=== PATIENT | female | born 2000 | race Caucasian/White ===

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

== ENCOUNTER 2022-05-29 06:26 | Emergency (ER) | payer BC, OTHER ==
[2022-05-29] MEDS ORDERED: Ibuprofen 800 MG TAB ONE (08:18)
== END 2022-05-29 08:59 | disposition home or self-care (01) ==
LOC: ERS 06:26
DX: M79.89 Other specified soft tissue disorders (principal); K21.9 Gastro-esophageal reflux disease without esophagitis

== ENCOUNTER 2022-07-16 15:11 | Emergency (ER) | payer OTHER | END 2022-07-16 17:34 | disposition left against medical advice (07) | LOC: ERS 15:11 | DX: Z53.21 Procedure and treatment not carried out due to patient leaving prior to being seen by health care provider (principal) ==